=== PATIENT | male | born 1985 ===

== ENCOUNTER 2017-10-16 13:45 | Emergency (ER) | payer SELFPAY ==
[2017-10-16] MEDS ORDERED: Sodium Chloride 0.9% 1,000 ML IV STA (14:26)
[2017-10-16 14:57] LABS: BASO % 0.3 % (0.0-2.0); EOS # 0.1 K/uL (0.0-0.7); EOS % 2.1 % (0.0-4.0); HEMOGLOBIN 15.9 g/dL (12.0-18.0); LYMPH # 2.3 K/uL (1.0-4.3); LYMPH % 35.9 % (20.0-40.0); MEAN CELL VOLUME 81.5 fl (80.0-94.0); MEAN CORPUSCULAR HEMOGLOBIN 27.8 pg (27.0-31.0); MEAN CORPUSCULAR HGB CONC 34.2 g/dL (33.0-37.0); MEAN PLATELET VOLUME 8.2 fl (7.2-11.7); MONO # 0.9 K/uL (0.0-0.8); MONO % 13.3 % (0.0-10.0); NEUT # 3.1 K/uL (1.8-7.0); NEUT % 48.4 % (50.0-75.0); NRBC % 0.1 % (0.0-0.0); RBC 5.7 Mil/uL (4.40-5.90); WHITE BLOOD COUNT 6.4 K/uL (4.8-10.8)
[2017-10-16 15:06] LABS: ALB/GLOB RATIO 1.2 (1.0-2.1); ALBUMIN 4.3 g/dL (3.5-5.0); ALT/SGPT 117 U/L (21-72); AST/SGOT 60 U/L (17-59); BLOOD UREA NITROGEN 11 mg/dl (9-20); CALCIUM 9.5 mg/dL (8.4-10.2); GFR AFRICAN-AMERICAN > 60; GFR NON-AFRICAN AMERICAN > 60; LIPASE 41 U/L (23-300)
--- NOTE | 2017-10-16 17:40 | ED PDOC ---
HPI:Nausea, Vomiting, Diarrhea Time Seen by Provider: 10/16/17 13:53 Chief Complaint (Nursing): GI Problem Chief Complaint (Provider): Diarrhea, vomiting History Per: Patient History/Exam Limitations: no limitations Onset/Duration Of Symptoms: Days (5) Have you had recent travel within the past 21 days to any of the following countries: [place], [place], [place] or [place]?: No Additional Complaint(s): 32 yo male with no medical problems presents with nausea and diarrhea x 5 days. PT denies fever/chills. Pt reports mild intermittent, crampy, diffuse abdominal pain. Pt states this began after eating Sifuentes and syriac food. Past Medical History Reviewed: Historical Data, Nursing Documentation, Vital Signs Vital Signs: Last Vital Signs Temp 97.5 F L 10/16/17 13:51 Pulse 90 10/16/17 13:51 Resp 16 10/16/17 13:51 BP 146/89 10/16/17 13:51 Pulse Ox 100 10/16/17 13:51 - Medical History PMH: Gall Bladder Disease (''SLUDGE''), Kidney Stones (BILAT) - Surgical History Surgical History: No Surg Hx - Family History Family History: States: Unknown Family Hx - Living Arrangements Living Arrangements: With Family - Social History Current smoker - smoking cessation education provided: No - Immunization History Hx Tetanus Toxoid Vaccination: No Hx Influenza Vaccination: No Hx Pneumococcal Vaccination: No - Home Medications Home Medications: Ambulatory Orders Medication Instructions Recorded Cyclobenzaprine HCl [Flexeril] 1 tab PO TID PRN #25 tab 11/27/14 Ondansetron [Zofran Odt] 4 mg PO Q4H PRN #10 odt 10/16/17 - Allergies Allergies/Adverse Reactions: Allergies Allergy/AdvReac Type Severity Reaction Status Date / Time No Known Allergies Allergy Verified 11/27/14 10:44 Review of Systems ROS Statement: Except As Marked, All Systems Reviewed And Found Negative Constitutional: Negative for: Fever, Chills Gastrointestinal: Positive for: Nausea, Vomiting, Abdominal Pain, Diarrhea Physical Exam - Reviewed Nursing Documentation Reviewed: Yes Vital Signs Reviewed: Yes - Physical Exam Appears: Positive for: Well, Non-toxic, No Acute Distress Head Exam: Positive for: ATRAUMATIC, NORMAL INSPECTION, NORMOCEPHALIC Skin: Positive for: Normal Color, Warm, DRY Eye Exam: Positive for: Normal appearance ENT: Positive for: Normal ENT Inspection Neck: Positive for: Normal, Painless ROM Cardiovascular/Chest: Positive for: Regular Rate, Rhythm Respiratory: Positive for: CNT, Normal Breath Sounds Gastrointestinal/Abdominal: Positive for: Normal Exam, Soft. Negative for: Tenderness Back: Positive for: Normal Inspection Extremity: Positive for: Normal ROM Neurologic/Psych: Positive for: Alert, Oriented - Laboratory Results Result Diagrams: 10/16/17 14:50 10/16/17 14:50 - ECG O2 Sat by Pulse Oximetry: 100 Medical Decision Making Medical Decision Making: Pt reports feeling better on re-evaluation. Disposition - Clinical Impression Clinical Impression: Gastroenteritis - Patient ED Disposition Is Patient to be Admitted: No Counseled Patient/Family Regarding: Diagnosis, Need For Followup, Rx Given - Disposition Disposition: Routine/Home Disposition Time: 17:41 Condition: STABLE Prescriptions: Ondansetron [Zofran Odt] 4 mg PO Q4H PRN #10 odt PRN Reason: Nausea Instructions: Diarrhea in Adolescents and Adults
[2017-10-16 18:38] VITALS: BP 126/71; PULSE 81; RESP 18; TEMP 98.1; O2SAT 98
== END 2017-10-16 18:36 | disposition home or self-care (01) ==
LOC: H.ER 13:45
DX: K52.9 Noninfective gastroenteritis and colitis, unspecified (principal)
CPT/HCPCS: 80053; 83690; 85025; 87045; 87177; 87209; 96360; 99285; J1885; J7040

== ENCOUNTER 2018-04-13 12:53 | Emergency (ER) | payer MEDICAID, OTHER ==
[2018-04-13 13:02] VITALS: O2SAT 99
[2018-04-13] MEDS ORDERED: PROPARACAINE/FLUORESCEIN SOD 100 DROP/5 ML BOTTLE OS STA (13:15)
[2018-04-13] MEDS ORDERED: Polymyxin/Trimethoprim Ophth Soln OS ONE (13:30)
[2018-04-13] MEDS ORDERED: PROPARACAINE/FLUORESCEIN SOD 100 DROP/5 ML BOTTLE ONE (13:33)
--- NOTE | 2018-04-13 13:37 | ED PDOC ---
HPI: Eye Injury/Pain Time Seen by Provider: 04/13/18 13:05 Chief Complaint (Nursing): Eye Problem Chief Complaint (Provider): Left Eye Irritation History Per: Patient History/Exam Limitations: no limitations Onset/Duration Of Symptoms: Days (x2 weeks) Current Symptoms Are (Timing): Still Present Additional Complaint(s): 33 year old male presents to the ED for evaluation of left eye irritation, tearing, and itchiness for the past two weeks associated with redness of the eye for the last few days. 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 PMD: none provided Past Medical History Reviewed: Historical Data, Nursing Documentation, Vital Signs Vital Signs: Last Vital Signs Temp 98.7 F 04/13/18 13:01 Pulse 91 H 04/13/18 13:01 Resp 20 04/13/18 13:01 BP 159/92 H 04/13/18 13:01 Pulse Ox 99 04/13/18 13:01 - Medical History PMH: Gall Bladder Disease (''SLUDGE''), Kidney Stones (BILAT) - Surgical History Other surgeries: microdisectomy of L4-L5 - Family History Family History: States: Unknown Family Hx - Social History Current smoker - smoking cessation education provided: No Alcohol: Social Drugs: Cannabis - Home Medications Home Medications: Ambulatory Orders Medication Instructions Recorded Cyclobenzaprine HCl [Flexeril] 1 tab PO TID PRN #25 tab 11/27/14 Ondansetron [Zofran Odt] 4 mg PO Q4H PRN #10 odt 10/16/17 Polymyxin/Trimethoprim Sulfate 1 drop OS Q3 #1 bottle 04/13/18 [Polytrim Ophth Soln] - Allergies Allergies/Adverse Reactions: Allergies Allergy/AdvReac Type Severity Reaction Status Date / Time No Known Allergies Allergy Verified 11/27/14 10:44 Review of Systems ROS Statement: Except As Marked, All Systems Reviewed And Found Negative Eyes: Positive for: Redness (to left eye), Other (left eye tearing, itchiness, and irritation). Negative for: Pain (or discharge or crusting), Vision Change ENT: Negative for: Ear Pain, Nose Congestion, Throat Pain Respiratory: Negative for: Cough Gastrointestinal: Negative for: Nausea, Vomiting, Abdominal Pain Physical Exam - Reviewed Nursing Documentation Reviewed: Yes Vital Signs Reviewed: Yes - Physical Exam Comments: GENERAL APPEARANCE: Patient is awake, alert, oriented x 3, in no acute distress. Resting comfortably. NECK: Supple, FROM HEENT: (-) facial swelling and erythema, (-) facial blisters, (-) periorbital swelling, tenderness, or erythema. TMs: (-) bulging, (-) erythema bilaterally. Pharynx: Clear, uvula midline, (-) erythema (-) exudates. VISUAL ACUITIES: Left eye: 20/ 20 ; Right eye: 20/ 20 ; Both eyes: 20 / 20. LIDS & LASHES: Normal. (-) crusting PUPILS: Pupils equal round and reactive to light. EOM's: Intact and painless. LID EVERSION: (-) foreign body. CONJUNCTIVAE: faint erythema to left medial conjunctiva, (-) mucus discharge ANTERIOR CHAMBER: (-) hyphema (-) chemosis FUNDUSCOPIC: (-) hemorrhage. FLUORESCEIN: No area of uptake noted. CARDIOVASCULAR: regular rate and rhythm RESPIRATORY: lungs clear bilaterally to auscultation, breath sounds even and non-labored. - ECG O2 Sat by Pulse Oximetry: 99 (RA) Pulse Ox Interpretation: Normal Medical Decision Making Medical Decision Making: Initial Impression: eye irritation, probable conjunctivitis Time: 1315 Initial Plan: --Flucaine eye drops 1 drop OS --Polytrim Ophth Soln 1 drop OS --Re-evaluation 1445 Repeat BP: 143/88 On re-evaluation, patient reports improvement of symptoms. On exam, patient remains AAOx3, in no acute distress. Lungs clear to auscultation, cardiac RRR, repeat neuro exam shows no focal findings. Vitals stable. Lab/Diagnostic results d/w the patient in great detail. Diagnosis of eye irritation, conjunctivitis d/w the patient. Based on history, exam and diagnostic results, plan will be for outpatient follow up with ophtho. Patient instructed to follow-up with pmd / referral provided / the clinic in 1- 2 days without fail. Advised to take medication as prescribed. Return to the emergency room at any time for any new or worsening symptoms. Patient states he fully agrees with and understands discharge instructions. States that he agrees with the plan and disposition. Verbalized and repeated discharge instructions and plan. I have given the patient opportunity to ask any additional questions. Scribe Attestation: Documented by Anne Marie Jama, acting as a scribe for Violette Ndiaye PA-C. Provider Scribe Attestation: All medical record entries made by the Scribe were at my direction and personally dictated by me. I have reviewed the chart and agree that the record accurately reflects my personal performance of the history, physical exam, medical decision making, and the department course for this patient. I have also personally directed, reviewed, and agree with the discharge instructions and disposition. Disposition - Clinical Impression Clinical Impression: Eye irritation, Conjunctivitis - Patient ED Disposition Is Patient to be Admitted: No Counseled Patient/Family Regarding: Studies Performed, Diagnosis, Need For Foll owup, Rx Given - Disposition Referrals: Hi Pringle MD [Staff Provider] - Disposition: Routine/Home Disposition Time: 14:50 Condition: STABLE Additional Instructions: FOLLOW UP WITH OPHTHALMOLOGY WITHIN THE WEEK FOR FURTHER EVALUATION. REFERRAL PROVIDED. The emergency medical care you received today was directed at your acute symptoms. If you were prescribed any medication, please fill it and take as directed. It may take several days for your symptoms to resolve. Return to the Emergency Department if your symptoms worsen, do not improve, or if you have any other problems. Please contact your doctor in 2 days for re-evaluation and follow up / or call one of the physicians/clinics you have been referred to that are listed on the Patient Visit Information form that is included in your discharge packet. Bring any paperwork you were given at discharge with you along with any medications you are taking to your follow up visit. Our treatment cannot replace ongoing medical care by a primary care provider (PCP) outside of the emergency department. Prescriptions: Polymyxin/Trimethoprim Sulfate [Polytrim Ophth Soln] 1 drop OS Q3 #1 bottle Instructions: Conjunctivitis (Pinkeye), Conjunctivitis (Noninfectious Pinkeye) Forms: [facility] (Ukrainian) Print Language: PRYDEINIG - POA Present On Arrival: None
[2018-04-13 14:58] VITALS: BP 143/88; PULSE 90; RESP 18; TEMP 98
== END 2018-04-13 14:45 | disposition home or self-care (01) ==
LOC: H.ER 12:53
DX: H10.9 Unspecified conjunctivitis (principal)

== ENCOUNTER 2018-05-24 23:35 | Emergency (ER) | payer MEDICAID, OTHER ==
--- NOTE | 2018-05-25 01:02 | ED PDOC ---
HPI: Male Pain Time Seen by Provider: 05/25/18 00:31 Chief Complaint (Nursing): Male Genitourinary Chief Complaint (Provider): Urinary frequency/burning, dry mouth History Per: Patient History/Exam Limitations: no limitations Associated Symptoms: denies: Fever, Chills, Nausea, Vomiting, Diarrhea, Loss Of Appetite Additional Complaint(s): 33 y/o M with hx of hypospadias who presents with c/o urinary frequency, dry mouth and rash on face since yesterday. Pt states that he was in his USOH until last night when he began having urinary frequency with some dysuria and dry mouth. He states that he has been drinking more but does not feel thirsty, only has dry lips and mouth. He states that he has a hx of hypospadias with UTI in the past and feels like his symptoms are similar to that. Pt states that he has been wearing tight fitting pants and that his dyuria may be from irritation. Denies drinking alcohol, N/V, diarrhea. Pt is concerned that his symptoms are related to diabetes as he has a family hx of this. Denies unintentional weight loss or gain. He does not have a PMD. He further states that he developed a mild rash on his face yesterday that is not itchy. Denies eating new foods, lotions, soaps. Past Medical History Reviewed: Historical Data, Nursing Documentation, Vital Signs Vital Signs: Last Vital Signs Temp 98.4 F 05/24/18 23:59 Pulse 87 05/24/18 23:59 Resp 20 05/24/18 23:59 BP 162/92 H 05/24/18 23:59 Pulse Ox 99 05/24/18 23:59 - Medical History PMH: Gall Bladder Disease (''SLUDGE''), Kidney Stones (BILAT) - Family History Family History: States: Unknown Family Hx - Immunization History Hx Tetanus Toxoid Vaccination: No Hx Influenza Vaccination: No Hx Pneumococcal Vaccination: No - Home Medications Home Medications: Ambulatory Orders Medication Instructions Recorded Cyclobenzaprine HCl [Flexeril] 1 tab PO TID PRN #25 tab 11/27/14 Ondansetron [Zofran Odt] 4 mg PO Q4H PRN #10 odt 10/16/17 Polymyxin/Trimethoprim Sulfate 1 drop OS Q3 #1 bottle 04/13/18 [Polytrim Ophth Soln] - Allergies Allergies/Adverse Reactions: Allergies Allergy/AdvReac Type Severity Reaction Status Date / Time ibuprofen Allergy ITCHING Verified 05/25/18 00:03 Physical Exam - Reviewed Nursing Documentation Reviewed: Yes Vital Signs Reviewed: Yes - Physical Exam Appears: Positive for: Well Skin: Positive for: Rash (mildly erythematous maculopapular rash on face) ENT: Positive for: TM Is/Are (normal), Other (dry oral mucosa). Negative for: Sinus Pain/Drainage, Pharyngeal Erythema, Tonsillar Exudate, Tonsillar Swelling Neck: Positive for: Normal Cardiovascular/Chest: Positive for: Regular Rate, Rhythm Respiratory: Positive for: Normal Breath Sounds Gastrointestinal/Abdominal: Positive for: Normal Exam Male Genital Exam: Positive for: other (+ hypospadias. + mild erythema around urethral meatus. ) Back: Positive for: Normal Inspection Neurologic/Psych: Positive for: Alert, Oriented, Mood/Affect (appropriate), Other (talkative, no pressured speech or flight of ideas). Negative for: Aphasia - Laboratory Results Result Diagrams: 05/25/18 01:05 05/25/18 01:05 - ECG O2 Sat by Pulse Oximetry: 99 Medical Decision Making Medical Decision Making: CBC, BMP Benadryl 25mg PO x 1 U/A, urine culture Discussed with patient that his urinary symptoms do not appear to be related to UTI and local irritation may be the cause of his dyuria. Testing and treatment for GC/Chlamydia offered as a possibly etiology for symptoms and patient stated that he did want to be treated, just in case. Ceftriaxone 250mg IM x 1 Azithromycin 1G PO x 1. Re-evaluated: rash on face improving after Benadryl with less erythema. Pt advised to take Benadryl PRN for rash and f/u with PMD for further evaluation of cause of rash. Disposition - Clinical Impression Clinical Impression: Urinary tract infection symptoms - Patient ED Disposition Is Patient to be Admitted: No Counseled Patient/Family Regarding: Studies Performed, Need For Followup - Disposition Referrals: [facility] [Outside] Disposition: Routine/Home Disposition Time: 03:06 Condition: STABLE Additional Instructions: No sex for 7 days. You will be called with results of cultures if positive. F/u with your primary care doctor for further evaluation of symptoms. Return to ER if you are unable to urinate, are in severe pain or develop fevers. Forms: [facility] (East [place]orese) Print Language: SWEDISH
[2018-05-25 01:09] LABS: BASO # 0.1 K/uL (0.0-0.2); BASO % 0.8 % (0.0-2.0); EOS # 0.2 K/uL (0.0-0.7); EOS % 2.1 % (0.0-4.0); HEMOGLOBIN 14.2 g/dL (12.0-18.0); LYMPH # 3.3 K/uL (1.0-4.3); LYMPH % 30.2 % (20.0-40.0); MEAN CELL VOLUME 83.6 fl (80.0-94.0); MEAN CORPUSCULAR HEMOGLOBIN 27.8 pg (27.0-31.0); MEAN CORPUSCULAR HGB CONC 33.2 g/dL (33.0-37.0); MEAN PLATELET VOLUME 8.1 fl (7.2-11.7); MONO # 0.8 K/uL (0.0-0.8); MONO % 7.5 % (0.0-10.0); NEUT # 6.4 K/uL (1.8-7.0); NEUT % 59.4 % (50.0-75.0); RBC 5.13 Mil/uL (4.40-5.90); RED CELL DISTRIBUTION WIDTH 12.6 % (11.5-14.5); WHITE BLOOD COUNT 10.8 K/uL (4.8-10.8)
[2018-05-25 01:19] LABS: BLOOD UREA NITROGEN 14 mg/dl (9-20); CALCIUM 9.3 mg/dL (8.4-10.2); GFR NON-AFRICAN AMERICAN > 60
[2018-05-25 01:30] LABS: BARBITURATES, UR NEGATIVE (NEGATIVE); BENZODIAZEPINES, UR NEGATIVE (NEGATIVE); OPIATES, UR NEGATIVE (NEGATIVE); PHENCYCLIDINE, UR NEGATIVE (NEGATIVE)
[2018-05-25 01:35] LABS: URINE BILIRUBIN NEGATIVE (NEGATIVE); URINE BLOOD SMALL (NEGATIVE); URINE CLARITY CLEAR (Clear); URINE COLOR STRAW (YELLOW); URINE GLUCOSE (UA) NEG (NEGATIVE); URINE LEUKOCYTE ESTERASE NEG Leu/uL (Negative); URINE PROTEIN NEGATIVE (NEGATIVE); URINE UROBILINOGEN 0.2-1.0 mg/dL (0.2-1.0)
[2018-05-25] MEDS ORDERED: cefTRIAXone (Rocephin) 250 mg Inj IM ONE (02:24)
[2018-05-25] MEDS ORDERED: Sterile Water 10 ML IV ONE (02:52)
[2018-05-25] MEDS ORDERED: cefTRIAXone (Rocephin) 250 mg Inj ONE (02:53)
[2018-05-25 03:18] VITALS: BP 141/92; PULSE 86; RESP 18; TEMP 98.2; O2SAT 100
== END 2018-05-25 03:18 | disposition home or self-care (01) ==
LOC: H.ER 23:35
DX: N39.0 Urinary tract infection, site not specified (principal)
CPT/HCPCS: 80048; 80324; 80345; 80346; 80349; 80353; 80358; 80361; 81003; 83992; 85025; 87086; 87491; 87591; 96372; 99284; J0696